=== PATIENT | female | born 1995 | race American Indian/Alaskan Native ===

== ENCOUNTER 2019-03-04 16:12 | Emergency (ER) | payer SELFPAY ==
[2019-03-04 16:28] VITALS: BP 132/72
--- NOTE | 2019-03-04 17:16 | Event Note ---
ED Screening Note Date of service: 03/04/19 Time: 17:16 ED Screening Note: reports nausea and vomiting for 2 weeks. Missed period for 1 month. Reports abdominal pain and vaginal discharge. no vaginal bleeding or urinary. No fever or chills. This initial assessment/diagnostic orders/clinical plan/treatment(s) is/are subject to change based on patients health status, clinical progression and re- assessment by fellow clinical providers in the ED. Further treatment and workup at subsequent clinical providers discretion. Patient/guardian urged not to elope from the ED as their condition may be serious if not clinically assessed and managed. Initial orders include: labs
[2019-03-04 17:46] LABS: Basophils # (Auto) 0.1 K/mm3 (0.0-0.1); Basophils % (Auto) 0.6 % (0.0-1.8); Eosinophils # (Auto) 0.2 K/mm3 (0.0-0.4); Eosinophils % (Auto) 2.2 % (0.0-4.3); Hematocrit 40.2 % (30.3-42.9); Hemoglobin 13.5 gm/dl (10.1-14.3); Lymphocytes # (Auto) 3.5 K/mm3 (1.2-5.4); Lymphocytes % (Auto) 32.9 % (13.4-35.0); Mean Corpuscular HGB Conc 34 % (30-34); Mean Corpuscular Volume 82 fl (79-97); Monocytes # (Auto) 0.7 K/mm3 (0.0-0.8); Monocytes % (Auto) 6.8 % (0.0-7.3); Platelet Count 235 K/mm3 (140-440); Red Blood Count 4.89 M/mm3 (3.65-5.03); Red Cell Distribution Width 12.6 % (13.2-15.2)
[2019-03-04 17:58] LABS: Bacteria,Urine 1+ /HPF (Negative); Bilirubin,Urine SM (Negative); Blood,Urine NEG (Negative); Calcium Oxalate Crystals,Urine 2+; Color,Urine Amber (Yellow); Mucus,Urine 1+ /HPF
[2019-03-04 18:02] LABS: Ictotest,Urine Positive (Negative)
[2019-03-04 18:07] LABS: Alanine Aminotransferase 44 units/L (7-56); Albumin 4.4 g/dL (3.9-5); BUN/Creatinine Ratio 8; Bilirubin,Direct 0.3 mg/dL (0-0.2); Blood Urea Nitrogen 5 mg/dL (7-17); Calcium 9.3 mg/dL (8.4-10.2); Hemolysis Index 10
[2019-03-04] MEDS ORDERED: SODIUM CHLORIDE 0.9% 1000 ML 1,000 ML IV ONE (19:21)
[2019-03-04] MEDS ORDERED: cefTRIAXone/NS 1 GM/50 ML 1 GM/50 ML BAG IV ONE (19:21)
[2019-03-04] MEDS ORDERED: ONDANSETRON 4 MG/2 ML INJ IV ONE (19:21)
--- NOTE | 2019-03-04 20:32 | Ultrasound Report ---
ULTRASOUND OBSTETRIC INDICATION / CLINICAL INFORMATION: Pain, . Hyperemesis Clinical Gestational Age (GA): Unknown TECHNIQUE: Transabdominal. COMPARISON: None available. FINDINGS: GESTATIONAL SAC: Well-defined oval shape and intrauterine in location. YOLK SAC: No significant abnormality. EMBRYO/FETUS: No significant abnormality. - [place]-Rump Length = 3.12 cm = 9 weeks, 6 day(s). - Heart Rate, beats per minute (if present) = 157 ADNEXA: No significant abnormality. FREE FLUID: None. ADDITIONAL FINDINGS: None. IMPRESSION: 1. Single, living intrauterine with estimated sonographic age of 9 weeks, day(s). Signer Name: Shea Arzate MD Signed: 03/04/2019 8:27 PM Workstation Name: [id number]
--- NOTE | 2019-03-04 20:40 | Emergency Department Report ---
ED N/V/D HPI - General Chief complaint: Nausea/Vomiting/Diarrhea Stated complaint: VOMIT/NAUSEA Time Seen by Provider: 03/04/19 17:14 Source: patient Mode of arrival: Ambulatory Limitations: No Limitations - History of Present Illness Initial comments: Patient is a A0 23-year-old -[place] female with no past medical history who is approximately 8 weeks gestation presents to the ED with a complaint of acute onset persistent intermittent nausea and vomiting with low abdominal pain for the last 2 weeks. Patient states that she's not been able to keep anything down this patient in the last 2 days because of persistent nausea and vomiting. Patient denies dizziness, fever, chills, headache, chest pain, shortness of breath, vaginal bleeding, vaginal discharge, dysuria, urinary frequency and urgency or diarrhea. MD complaint: nausea, vomiting, abdominal pain -: Sudden, week(s) (2) Description of Vomiting: food contents Associated Abdominal Pain: Yes (suprapubic) Radiation: none Severity: moderate Pain Scale: 5 Quality: cramping, aching, sharp Consistency: intermittent Improves with: none Worsens with: vomiting Associated Symptoms: denies other symptoms, myalgias, loss of appetite, malaise, nausea/vomiting. denies: chest pain, cough, diaphoresis, fever/chills, headaches, rash, dysuria, shortness of breath, syncope, weakness - Related Data Previous Rx's Medication Instructions Recorded Last Taken Type Acetaminophen [Acetaminophen TAB] 1,000 mg PO Q6HR PRN #30 tablet 03/04/19 Unknown Rx Vit-Fe Fumar-FA [ 1 tab PO QDAY #60 tablet 03/04/19 Unknown Rx Vitamin] Promethazine [Phenergan] 25 mg PO Q6HR PRN #30 tab 03/04/19 Unknown Rx cephALEXin [Keflex] 500 mg PO Q8HR #30 cap 03/04/19 Unknown Rx Allergies Allergy/AdvReac Type Severity Reaction Status Date / Time No Known Allergies Allergy Unverified 03/04/19 16:24 ED Review of Systems ROS: Stated complaint: VOMIT/NAUSEA Other details as noted in HPI Constitutional: denies: chills, fever Eyes: denies: eye pain, eye discharge, vision change ENT: denies: ear pain, throat pain Respiratory: denies: cough, shortness of breath, wheezing Cardiovascular: denies: chest pain, palpitations Endocrine: no symptoms reported Gastrointestinal: abdominal pain, nausea, vomiting. denies: diarrhea Genitourinary: denies: urgency, dysuria, discharge Musculoskeletal: denies: back pain, joint swelling, arthralgia Skin: denies: rash, lesions Neurological: denies: headache, weakness, paresthesias Psychiatric: denies: anxiety, depression Hematological/Lymphatic: denies: easy bleeding, easy bruising ED Past Medical Hx - Past Medical History Previous Medical History?: No - Surgical History Past Surgical History?: No - Social History Smoking Status: Current Every Day Smoker Substance Use Type: None - Medications Home Medications: Home Medications Medication Instructions Recorded Confirmed Last Taken Type Acetaminophen [Acetaminophen TAB] 1,000 mg PO Q6HR PRN #30 tablet 03/04/19 Un known Rx Vit-Fe Fumar-FA [ 1 tab PO QDAY #60 tablet 03/04/19 Unknown Rx Vitamin] Promethazine [Phenergan] 25 mg PO Q6HR PRN #30 tab 03/04/19 Unknown Rx cephALEXin [Keflex] 500 mg PO Q8HR #30 cap 03/04/19 Unknown Rx ED Physical Exam - General Limitations: No Limitations General appearance: alert, in no apparent distress - Head Head exam: Present: atraumatic, normocephalic, normal inspection - Eye Eye exam: Present: normal appearance, PERRL, EOMI Pupils: Present: normal accommodation - ENT ENT exam: Present: normal exam, normal orophraynx, mucous membranes moist, TM's normal bilaterally, normal external ear exam - Neck Neck exam: Present: normal inspection, full ROM. Absent: tenderness, lymphadenopathy - Respiratory Respiratory exam: Present: normal lung sounds bilaterally. Absent: respiratory distress, wheezes, rhonchi, stridor, chest wall tenderness, accessory muscle use, decreased breath sounds - Cardiovascular Cardiovascular Exam: Present: regular rate, normal rhythm, normal heart sounds. Absent: systolic murmur, diastolic murmur, rubs, gallop - GI/Abdominal GI/Abdominal exam: Present: soft, normal bowel sounds. Absent: tenderness, guarding, rebound - Extremities Exam Extremities exam: Present: normal inspection, full ROM, normal capillary refill - Back Exam Back exam: Present: normal inspection, full ROM. Absent: tenderness, CVA tenderness (R), CVA tenderness (L), muscle spasm, paraspinal tenderness - Neurological Exam Neurological exam: Present: alert, oriented X3, CN II-XII intact, normal gait, reflexes normal - Psychiatric Psychiatric exam: Present: normal affect, normal mood - Skin Skin exam: Present: warm, dry, intact, normal color. Absent: rash ED Course Vital Signs 03/04/19 16:25 Temperature 98.5 F Pulse Rate 65 Respiratory 18 Rate Blood Pressure 132/72 [Right] O2 Sat by Pulse 99 Oximetry - Reevaluation(s) Reevaluation #1: 03/04/19 20:37 This is a 23-year-old -[place] female who is approximately 8 weeks gestation and presented to the ED with complaint of acute onset persistent nausea and vomiting with lower abdominal pain for the last 2 weeks, worse in the last 2 days. In the ED, patient is alert and oriented 3 and is not in distress. Patient is having persistent nausea and vomiting in the ED during the physical exam. Lab test results were reviewed and are all nonactionable except urinalysis that showed significant urinary tract infection, [place] [id number]. Patient was treated the ED with normal saline 1 L IV bolus, antiemetics and Rocephin 1 g IV for the acute urinary tract infection. Patient was able to keep all oral fluids in the ED with no nausea and vomiting after treatment. Transvaginal ultrasound shows a single live IUP of approximately 9 weeks and 6 days with a heart rate of 157 bpm. Patient was discharged home on antiemetics, vitamins and oral antibiotics and advised to follow-up with [facility] [employer] physician in 5-7 days for reevaluation or return to the ED immediately if symptoms get worse. 03/04/19 20:40 ED Medical Decision Making - Lab Data Result diagrams: 03/04/19 17:25 03/04/19 17:25 - Radiology Data Radiology results: report reviewed, image reviewed Transvaginal ultrasound shows a single live IUP of approximately 9 weeks and 6 days, with a heart rate of 157 bpm. - Medical Decision Making This is a 23-year-old -[place] female who is approximately 8 weeks gestation and presented to the ED with complaint of acute onset persistent nausea and vomiting with lower abdominal pain for the last 2 weeks, worse in the last 2 days. In the ED, patient is alert and oriented 3 and is not in d istress. Patient is having persistent nausea and vomiting in the ED during the physical exam. Lab test results were reviewed and are all nonactionable except urinalysis that showed significant urinary tract infection, [place] [id number]. Patient was treated the ED with normal saline 1 L IV bolus, antiemetics and Rocephin 1 g IV for the acute urinary tract infection. Patient was able to keep all oral fluids in the ED with no nausea and vomiting after treatment. Transvaginal ultrasound shows a single live IUP of approximately 9 weeks and 6 days with a heart rate of 157 bpm. Patient was discharged home on antiemetics, vitamins and oral antibiotics and advised to follow-up with [facility] [employer] physician in 5-7 days for reevaluation or return to the ED immediately if symptoms get worse. - Differential Diagnosis Abdominal pain; UTI; Hyperemesis gravidarum; Viral gastroenteritis Critical care attestation.: If time is entered above; I have spent that time in minutes in the direct care of this critically ill patient, excluding procedure time. ED Disposition Clinical Impression: Abdominal pain during in first trimester, Acute urinary tract infection, Nausea and vomiting in Disposition: DC- TO HOME OR SELFCARE Is pt being admited?: No Does the pt Need Aspirin: No Condition: Stable Instructions: (ED), Urinary Tract Infection in Women (ED), Abdominal Pain (ED), Hyperemesis Gravidarum (ED) Additional Instructions: Take medications with food, drink plenty of fluids and follow-up with your OB/ [facility] SUPPORT SPECIALIST physician in 5-7 days for reevaluation. Return to the ED immediately if symptoms get worse. Prescriptions: Acetaminophen [Acetaminophen TAB] 1,000 mg PO Q6HR PRN #30 tablet PRN Reason: Pain , Severe (7-10) cephALEXin [Keflex] 500 mg PO Q8HR #30 cap Promethazine [Phenergan] 25 mg PO Q6HR PRN #30 tab PRN Reason: Nausea Vit-Fe Fumar-FA [ Vitamin] 1 tab PO QDAY #60 tablet Referrals: AQUILES MOSS MD [Staff Physician] - 3-5 Days Time of Disposition: 20:42 Print Language: BRUNEIAN
== END 2019-03-04 21:30 | disposition home or self-care (01) ==
LOC: ED 16:12
DX: O23.41 Unspecified infection of urinary tract in pregnancy, first trimester (principal); F17.200 Nicotine dependence, unspecified, uncomplicated; Z3A.08 8 weeks gestation of pregnancy; Z79.899 Other long term (current) drug therapy
CPT/HCPCS: 36415; 76801; 80048; 80076; 81001; 84702; 84703; 85025; 96365; 96375; 99284; J0696; J2405; J7030

== ENCOUNTER 2021-12-15 14:20 | Emergency (ER) | payer MEDICAID ==
[2021-12-15 14:54] VITALS: BP 126/72
[2021-12-15 15:59] LABS: Hematocrit 36.5 % (30.3-42.9); Hemoglobin 12.4 gm/dl (10.1-14.3); Mean Corpuscular HGB Conc 34 % (30-34); Mean Corpuscular Volume 80 fl (79-97); Platelet Count 243 K/mm3 (140-440); Red Blood Count 4.56 M/mm3 (3.65-5.03)
[2021-12-15 16:04] LABS: BUN/Creatinine Ratio 9; Blood Urea Nitrogen 9 mg/dL (7-17); Calcium 9.4 mg/dL (8.4-10.2); Hemolysis Index 1
--- NOTE | 2021-12-15 16:15 | Emergency Department Report ---
ED Dysuria HPI - HPI Chief Complaint: Vaginal Bleeding Stated Complaint: POSSIBLE MISCARRIAGE Location of Discomfort: Other Severity: Mild Symptoms: Dysuria: No, Frequency: No, Suprapubic Pain: No, Flank Pain: No, Fever: No, Hematuria: No, Abdominal Pain: No, Previous UTI's: No Other History: Patient is a 26-year-old female that comes to the emergency room with abnormal vaginal bleeding for 2 weeks. She was concerned that she is . Has not seen the TOWER EQUIPMENT INSTALLER prior to coming to the ER. She has not done a test at home. Patient states that she is going through twice as many pads as she normally does. She has no chest pain. No shortness of breath. No fever or chills. No back pain. No abdominal pain. ED Review of Systems ROS: Stated complaint: POSSIBLE MISCARRIAGE Other details as noted in HPI Comment: All other systems reviewed and negative ED Past Medical Hx - Past Medical History Previous Medical History?: No - Surgical History Past Surgical History?: Yes Additional Surgical History: - Family History Family history: no significant - Social History Smoking Status: Never Smoker Substance Use Type: None - Medications Home Medications: Home Medications Medication Instructions Recorded Confirmed Last Taken Type Acetaminophen [Acetaminophen TAB] 1,000 mg PO Q6HR PRN #30 tablet 03/04/19 Unknown Rx Vit-Fe Fumar-FA [ 1 tab PO QDAY #60 tablet 03/04/19 Unknown Rx Vitamin] Promethazine [Phenergan] 25 mg PO Q6HR PRN #30 tab 03/04/19 Unknown Rx cephALEXin [Keflex] 500 mg PO Q8HR #30 cap 03/04/19 Unknown Rx Dysuria Exam - Exam General: Vital signs noted. No distress. Alert and acting appropriately. Exam: Yes Moist Mucous Membranes, No CVA Tenderness, No Abdominal Tenderness, No Rigidity or Guarding Labs: Lab Results 12/15/21 12/15/21 12/15/21 Range/Units 15:11 15:11 15:11 WBC 10.5 (4.5-11.0) K/mm3 RBC 4.56 (3.65-5.03) M/mm3 Hgb 12.4 (10.1-14.3) gm/dl Hct 36.5 (30.3-42.9) % MCV 80 (79-97) fl MCH 27 L (28-32) pg MCHC 34 (30-34) % RDW 14.0 (13.2-15.2) % Plt Count 243 (140-440) K/mm3 Sodium 139 (137-145) mmol/L Potassium 3.9 (3.6-5.0) mmol/L Chloride 104.4 (98-107) mmol/L Carbon Dioxide 21 L (22-30) mmol/L Anion Gap 18 mmol/L BUN 9 (7-17) mg/dL Creatinine 1.0 (0.6-1.2) mg/dL Estimated GFR > 60 ml/min BUN/Creatinine Ratio 9 % Glucose 155 H (65-100) mg/dL Calcium 9.4 (8.4-10.2) mg/dL HCG, Quant < 2 (0-4) mIU/mL ED Course Vital Signs 12/15/21 14:51 Temperature 98.9 F Pulse Rate 87 Respiratory 18 Rate Blood Pressure 126/72 O2 Sat by Pulse 98 Oximetry ED Medical Decision Making - Lab Data Result diagrams: 12/15/21 15:11 12/15/21 15:11 - Medical Decision Making Lab Results 12/15/21 12/15/21 12/15/21 Range/Units 15:11 15:11 15:11 WBC 10.5 (4.5-11.0) K/mm3 RBC 4.56 (3.65-5.03) M/mm3 Hgb 12.4 (10.1-14.3) gm/dl Hct 36.5 (30.3-42.9) % MCV 80 (79-97) fl MCH 27 L (28-32) pg MCHC 34 (30-34) % RDW 14.0 (13.2-15.2) % Plt Count 243 (140-440) K/mm3 Sodium 139 (137-145) mmol/L Potassium 3.9 (3.6-5.0) mmol/L Chloride 104.4 (98-107) mmol/L Carbon Dioxide 21 L (22-30) mmol/L Anion Gap 18 mmol/L BUN 9 (7-17) mg/dL Creatinine 1.0 (0.6-1.2) mg/dL Estimated GFR > 60 ml/min BUN/Creatinine Ratio 9 % Glucose 155 H (65-100) mg/dL Calcium 9.4 (8.4-10.2) mg/dL HCG, Quant < 2 (0-4) mIU/mL Vital Signs 12/15/21 14:51 Temperature 98.9 F Pulse Rate 87 Respiratory 18 Rate Blood Pressure 126/72 O2 Sat by Pulse 98 Oximetry Labs noted. hCG is less than 2. Hemoglobin is stable. Patient updated on findings from her labs. She is being discharged home with discharge plan of care including [facility]MENT INST[employer]ER follow-up. On discharge patient ambulatory not ill nontoxic in appearance. - Differential Diagnosis Rule out /ectopic Critical care attestation.: If time is entered above; I have spent that time in minutes in the direct care of this critically ill patient, excluding procedure time. ED Disposition Clinical Impression: Heavy menses Disposition: 01 HOME / SELF CARE / HOMELESS Is pt being admited?: No Does the pt Need Aspirin: No Condition: Stable Instructions: Menstruation Additional Instructions: follow up with obgyn referral below Referrals: TRAY GOMEZ MD [Staff Physician] - 3-5 Days Forms: Work/School Release Form(ED) Time of Disposition: 16:17
== END 2021-12-15 18:00 | disposition home or self-care (01) ==
LOC: ED 14:20
DX: N92.0 Excessive and frequent menstruation with regular cycle (principal)
CPT/HCPCS: 36415; 80048; 84702; 85027; 99283